=== PATIENT | female | born 1980 | race Caucasian/White ===

== ENCOUNTER 2024-07-02 14:53 | Emergency (ER) | payer BC, OTHER ==
[~2024-07-02] VITALS: Ht 162.6 cm; Wt 54.4 kg
[2024-07-02 16:51] LABS: BASOPHILS % (AUTO) 0.3 % (0.0-2.0); EOSINOPHILS % (AUTO) 0.7 % (0.0-6.0); HEMATOCRIT 39 % (33-45); HEMOGLOBIN 12.8 g/dL (11.5-14.8); LYMPHOCYTES # (AUTO) 1.6 K/uL (0.8-4.8); LYMPHOCYTES % (AUTO) 22.2 % (20.0-44.0); MEAN CORPUSCULAR HEMOGLOBIN 30 PG (26.0-33.0); MEAN CORPUSCULAR HGB CONC 33 g/dl (31.0-36.0); MEAN CORPUSCULAR VOLUME 91 fL (82-100); MONOCYTES # (AUTO) 0.5 K/uL (0.1-1.30); MONOCYTES % (AUTO) 6.5 % (2.0-12.0); NEUTROPHILS % (AUTO) 70.3 % (43.0-81.0); PLATELET COUNT (AUTO) 414 K/uL (150-450); RED BLOOD CELL COUNT(AUTO) 4.27 MIL/uL (4.0-5.2); RED CELL DISTRIBUTION WIDTH 13.2 % (11.5-15.0); WHITE BLOOD COUNT (AUTO) 7.1 K/uL (4.3-11.0)
[2024-07-02 17:03] LABS: POTASSIUM 3.7 mmol/L (3.5-5.1)
[2024-07-02 17:04] LABS: CALCIUM, SERUM 8.8 mg/dL (8.5-10.1); CARBON DIOXIDE 26 mmol/L (21-32); CHLORIDE 101 mmol/L (98-107); CREATININE 0.6 mg/dL (0.6-1.3); GLUCOSE 106 mg/dL (74-106); SODIUM SERUM 135 mmol/L (136-145); UREA NITROGEN, BLOOD 12 mg/dL (7-18)
[2024-07-02 18:00] LABS: PREGNANCY TEST URINE QUAL NEGATIVE (NEGATIVE)
[2024-07-02] MEDS ORDERED: IBUP-1490 PO (18:15)
[2024-07-02] MEDS: IBUPROFEN 600 MG TABLET PO ONE (18:22)
[2024-07-02] MEDS ORDERED: IBUPROFEN 600 MG TABLET ONE (18:22)
[2024-07-02 18:32] VITALS: BP 126/86; TEMP 98.3; O2SAT 100
== END 2024-07-02 18:32 | disposition home or self-care (01) ==
LOC: ER 15:39
DX: R07.81 Pleurodynia (principal); Z86.79 Personal history of other diseases of the circulatory system; Z88.0 Allergy status to penicillin; Z88.2 Allergy status to sulfonamides; Z60.2 Problems related to living alone
CPT/HCPCS: 36415; 71045-TC; 80048-TC; 84484-TC; 84703-TC; 85025-TC